=== PATIENT | male | born 1960 | race Caucasian/White ===

== ENCOUNTER → 2019-12-06 | Outpatient (CLI) | payer OTHER ==
[~2019-12-06] MED LIST: NORCO 5-325 TA1 EACH PO
== END ==
LOC: LAB 07:44
PROVIDERS: ATTEND Neuromusculoskeletal Medicine & OMM
DX: R05 Cough (principal); R51 Headache; R53.83 Other fatigue; Z20.828 Contact with and (suspected) exposure to other viral communicable diseases